=== PATIENT | female | born 1995 | race Caucasian/White ===

== ENCOUNTER 2019-06-24 20:13 | Emergency (ER) | payer BC ==
[~2019-06-24] VITALS: Ht 162.6 cm; Wt 79.4 kg
[2019-06-24 20:30] VITALS: BP 99/65
--- NOTE | 2019-06-24 20:35 | NUR ---
ED Nurse Note: pt presents to ED c/o uterus px, dizziness and nausea without vomiting. pt reports that she has an IUD in that was supposed to be removed earlier this month but has not been. she denies any bleeding but does mention some vaginal discharge that does not smell. pt denies dysuria or hematuria. pt reports the px comes and goes and feels like a "sharp, stabbing" sensation.
--- NOTE | 2019-06-24 20:45 | NUR ---
ED Nurse Note: pt is groaning and yelling in px, states she is on vivitrol and the ordered morphine will not work for her. ERMD notified.
--- NOTE | 2019-06-24 20:47 | Emergency Room Report ---
History of Present Illness General Chief Complaint: Abdominal Pain Source: Patient Present Illness HPI Disclaimer: Please note that this report is being documented using Fastnote technology. This can lead to erroneous entry secondary to incorrect interpretation by the dictating instrument. HPI: 24-year-old female with history of personality disorder and multiple STIs presents for evaluation of pelvic pain. Patient states her LMP was approximate 1 week ago shortly after which she had unprotected sex. She is been complaining of increased pelvic discomfort and pressure as well as a thin white vaginal discharge. Denies dysuria or hematuria. She has had an IUD for 5 years and is scheduled to have it removed soon. Approximately 3 hours prior to arrival she could started complaining of sharp and stabbing pain "in her uterus. " She wants her IUD removed. Also concerned she may have an STI. Denies fevers, chills. She has been vomiting for the past few days. Denies diarrhea or flank pain. PMH: STIs, personality disorder PSH: Denies Allergies: None reported Social Hx: None reported Allergies: Coded Allergies: No Known Allergies (Unverified , 06/24/19) Patient History Last Menstrual Period: 06/13/19 Now: No Review of Systems All Other Systems: negative except mentioned in HPI Physical Exam Vital Signs Date Time Temp Pulse Resp B/P (MAP) Pulse Ox O2 Delivery O2 Flow Rate FiO2 06/24/19 20:18 98.1 100 19 99/65 (76) 96 Room Air General: Awake and alert, appears uncomfortable HEENT: NC/AT. EOMI. Cardiovascular: Borderline tachycardic. S1 and S2 normal. No murmur appreciated Resp: Normal work of breathing. No cough, wheezing or crackles appreciated Abdomen: Abdomen is soft, nondistended. Tenderness palpation in the lower quadrants bilaterally in particular to the suprapubic and periumbilical region. Minor tenderness in the upper quadrants. No flank pain. : Thick cottage cheese white discharge. No bleeding, no ulcers. Could not visualize Mirena strings Skin: Intact. No abrasions, laceration or rash over the exposed skin MSK: Normal tone and bulk. Moving all extremities. No obvious deformity. Neuro: Awake and alert. Mentating appropriately. Medical Decision Making Diagnostic Impression: Primary Impression: Pain due to intrauterine contraceptive device (IUD) Additional Impression: Pelvic pain ER Course 24-year-old female presents for evaluation of pelvic pain as well as 3 days of vaginal discharge, vomiting and abdominal cramping. Differential includes but not limited to UTI, pyelonephritis, STI, tubo-ovarian abscess, , ectopic , pelvic inflammatory disease, problem with her IUD. Start a broad metabolic infectious work-up. Will send for hCG and CT. Give IV fluids and pain medication. Laboratory Tests Test 06/24/19 20:40 White Blood Count 8.4 K/UL (4.8-10.8) Red Blood Count 4.33 M/UL (4.20-5.40) Hemoglobin 14.1 G/DL (12.0-16.0) Hematocrit 40.0 % (37.0-47.0) Mean Corpuscular Volume 92 FL (80-99) Mean Corpuscular Hemoglobin 32.6 PG (27.0-31.0) H Mean Corpuscular Hemoglobin Concent 35.2 G/DL (32.0-36.0) Red Cell Distribution Width 11.0 % (11.6-14.8) L Platelet Count 303 K/UL (150-450) Mean Platelet Volume 5.0 FL (6.5-10.1) L Neutrophils (%) (Auto) 58.2 % (45.0-75.0) Lymphocytes (%) (Auto) 33.0 % (20.0-45.0) Monocytes (%) (Auto) 6.8 % (1.0-10.0) Eosinophils (%) (Auto) 1.3 % (0.0-3.0) Basophils (%) (Auto) 0.7 % (0.0-2.0) Prothrombin Time 10.7 SEC (9.30-11.50) Prothrombin Time INR 1.0 (0.9-1.1) Activated Partial Thromboplast Time 41 SEC (23-33) H Urine Color Pale yellow Urine Appearance Clear Urine pH 6.5 (4.5-8.0) Urine Specific [place] 1.015 (1.005-1.035) Urine Protein Negative (NEGATIVE) Urine Glucose (UA) Negative (NEGATIVE) Urine Ketones Negative (NEGATIVE) Urine Blood Negative (NEGATIVE) Urine Nitrite Negative (NEGATIVE) Urine Bilirubin Negative (NEGATIVE) Urine Urobilinogen Normal MG/DL (0.0-1.0) Urine Leukocyte Esterase Negative (NEGATIVE) Sodium Level 142 MMOL/L (136-145) Potassium Level 4.0 MMOL/L (3.5-5.1) Chloride Level 104 MMOL/L (98-107) Carbon Dioxide Level 27 MMOL/L (21-32) Anion Gap 12 mmol/L (5-15) Blood Urea Nitrogen 12 mg/dL (7-18) Creatinine 0.9 MG/DL (0.55-1.30) Estimate Glomerular Filtration Rate > 60 mL/min (>60) Glucose Level 88 MG/DL (74-106) Calcium Level 9.1 MG/DL (8.5-10.1) Total Bilirubin 0.2 MG/DL (0.2-1.0) Aspartate Amino Transferase (AST) 20 U/L (15-37) Alanine Aminotransferase (ALT) 28 U/L (12-78) Alkaline Phosphatase 98 U/L (46-116) Total Protein 8.1 G/DL (6.4-8.2) Albumin 4.2 G/DL (3.4-5.0) Globulin 3.9 g/dL Albumin/Globulin Ratio 1.1 (1.0-2.7) Lipase 77 U/L (73-393) Human Chorionic Gonadotropin, Quant 1 mIU/mL (1-6) CT/MRI/US Diagnostic Results CT/MRI/US Diagnostic Results : Impression Preliminary Findings Only See Final Report For Complete Findings CT ABDOMEN & PELVIS With Contrast: Motion degraded study. Hepatosplenomegaly and mild diffuse hepatic steatosis. No acute findings involving the solid abdominal organs. The gallbladder partially contracted. No evidence of biliary ductal dilatation. No evidence of lower GI tract obstruction , focal wall thickening or pneumatosis. Mildly fluid distended distal small bowel segments and liquid stool in the colon that is most suggestive of acute enteritis. The appendix was not definitively visualized. But likely anterior to the right psoas muscle. If this reflects the appendage it appears normal. IUD present in the uterus. Very small amount of fluid in the pelvis likely physiologic. Radiologist: Tiago Cordova MD Study ready at 22:11 and initial results transmitted at 22:17 Reevaluation Time: 22:53 Last Vital Signs Date Time Temp Pulse Resp B/P (MAP) Pulse Ox O2 Delivery O2 Flow Rate FiO2 06/24/19 20:18 98.1 100 19 99/65 (76) 96 Room Air Reevaluation Impression No perforation or other abnormalities aside from enteritis seen on CT scan. The patient knows about the hepatic steatosis changes seen on her CT. Thick white discharge seen on pelvic exam however wet mount did not show any bacteria , no yeast, no clue cells and overall unremarkable. May be physiologic discharge. Unable to visualize the IUD strings for removal. She has of the lower end of the lifecycle of the IUD and recently got her first period in 5 years. May be a due to hormonal changes. She will follow-up with [facility] or PMD as quickly as possible. Discussed reasons to return to the emergency department. Her pain is significantly improved after receiving Toradol. She is stable for outpatient follow-up. She understands and agrees with this treatment plan. Disposition: HOME, SELF-CARE Condition: Stable Scripts Ondansetron Odt* (ZOFRAN ODT*) 4 Mg Tab.rapdis 4 MG BC EVERY 6 HOURS PRN for Nausea & Vomiting, #10 TAB 0 Refills Prov: Harpal Abdalla MD 06/24/19 Ibuprofen* (MOTRIN*) 600 Mg Tablet 600 MG ORAL Q8H PRN for For Pain, #30 TAB 0 Refills Prov: Harpal Abdalla MD 06/24/19 Harpal Abdalla MD Jun 24, 2019 20:47
[2019-06-24 20:57] LABS: BASOPHILS % (AUTO) 0.7 % (0.0-2.0); EOSINOPHILS % (AUTO) 1.3 % (0.0-3.0); HEMOGLOBIN 14.1 G/DL (12.0-16.0); MEAN CORPUSCULAR VOLUME 92 FL (80-99); MONOCYTES % (AUTO) 6.8 % (1.0-10.0); NEUTROPHILS % (AUTO) 58.2 % (45.0-75.0); PLATELET COUNT 303 K/UL (150-450); RED BLOOD COUNT 4.33 M/UL (4.20-5.40); WHITE BLOOD COUNT 8.4 K/UL (4.8-10.8)
[2019-06-24] MEDS ORDERED: Morphine Sulfate 2mg/ml Inj(IV/IM USE ONLY) IVP ONE (21:00)
[2019-06-24 21:05] LABS: APPEARANCE,URINE CLEAR; BILIRUBIN, URINE NEGATIVE (NEGATIVE); COLOR,URINE PALE YELLOW; GLUCOSE, URINE (UA) NEGATIVE (NEGATIVE); KETONES,URINE NEGATIVE (NEGATIVE); LEUKOCYTE ESTERASE ,URINE NEGATIVE (NEGATIVE); NITRITE,URINE NEGATIVE (NEGATIVE); PH,URINE 6.5 (4.5-8.0); PROTEIN,URINE NEGATIVE (NEGATIVE); UROBILINOGEN,URINE NORMAL MG/DL (0.0-1.0)
[2019-06-24 21:08] LABS: ANION GAP 12 mmol/L (5-15); BLOOD UREA NITROGEN 12 mg/dL (7-18); CALCIUM 9.1 MG/DL (8.5-10.1); CARBON DIOXIDE 27 MMOL/L (21-32); CHLORIDE 104 MMOL/L (98-107); CREATININE 0.9 MG/DL (0.55-1.30); SODIUM 142 MMOL/L (136-145)
[2019-06-24 21:13] LABS: ALANINE AMINOTRANSFERASE 28 U/L (12-78); ALBUMIN 4.2 G/DL (3.4-5.0); ALBUMIN/GLOBULIN RATIO 1.1 (1.0-2.7); ALKALINE PHOSPHATASE 98 U/L (46-116); ASPARTATE AMINO TRANSFERASE 20 U/L (15-37); BILIRUBIN,TOTAL 0.2 MG/DL (0.2-1.0)
[2019-06-24] MEDS ORDERED: Omnipaque-300 100ml vial INJ PRN (21:30)
[2019-06-24] MEDS ORDERED: Ketorolac 30mg Inj IV ONE (21:45)
--- NOTE | 2019-06-24 22:18 | Diagnostic Imaging Report ---
INDICATION: Abdominal pain TECHNIQUE: Continuous helical transaxial imaging of the abdomen and pelvis was obtained from the lung bases to the pubic symphysis during intravenous contrast administration. Coronal 2-D reformats were also obtained. Study obtained in a Siemens sensation [address] Automatic Exposure Control was utilized. Total Dose length Product (DLP): 1398.[address] Dose Index Volume (CTDIvol): 44.8 mGy COMPARISON: None FINDINGS: Lungs: The visualized lung bases are clear. Liver: Unremarkable Gallbladder/biliary system: Gallbladder is contracted. There is no biliary ductal dilatation identified. Portal vein enhances normally.. Spleen: Unremarkable Pancreas: Unremarkable Kidneys: No hydronephrosis identified. Both kidneys enhance symmetrically.. Adrenal glands: Unremarkable Aorta/IVC: Unremarkable Bowel: There is no evidence of bowel obstruction. Bladder: Unremarkable Peritoneum: There is trace free fluid within the pelvis. Intrauterine device demonstrated within the uterus. There is suggestion of a small right ovarian cyst measuring about 1.5 cm.. Bones: Unremarkable IMPRESSION: No acute findings appreciated. IUD noted. Trace free fluid which may be physiologic. Note: Enteritis was suspected on the basis of the preliminary reading/interpretation. Please correlate clinically and evaluate/manage further as needed. Otherwise agree with the preliminary report by [employer]. The CT scanner at [facility] is accredited by the [employer] and the scans are performed using dose optimization techniques as appropriate to a performed exam including Automatic Exposure control.
[2019-06-24] MEDS ORDERED: IBUPROFEN600 MG ORAL (23:10)
[2019-06-24] MEDS ORDERED: ONDANSETRON ODT4 MG BC (23:17)
[2019-06-24 23:30] VITALS: BP 99/65
--- NOTE | 2019-06-24 23:30 | NUR ---
ER DISCHARGE NOTE: Patient is cleared to be discharged per ERMD, pt is aox4, on room air, with stable vital signs. pt was given dc and prescription instructions, pt was able to verbalize understanding, pt id band and iv site removed without complications. pt is able to ambulate with steady gait. pt took all belongings.
== END 2019-06-24 23:30 | disposition home or self-care (01) ==
LOC: EMR 22:35
DX: T83.84XA Pain due to genitourinary prosthetic devices, implants and grafts, initial encounter (principal); R10.2 Pelvic and perineal pain; X58.XXXA Exposure to other specified factors, initial encounter; Y92.9 Unspecified place or not applicable
CPT/HCPCS: 36415; 74177; 80053; 81003; 83690; 84702; 85025; 85610; 85730; 87210; 96361; 96374; 99284; J1885; J7030; Q9967